=== PATIENT | female | born 1985 | race Caucasian/White ===

== ENCOUNTER 2017-09-08 12:39 | Inpatient (IN) | payer OTHER ==
[2017-09-08] MEDS ORDERED: OLANZapine 10 MG/2 ML VIAL IM ONE (13:24)
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
[2017-09-08 13:33] LABS: PLATELET COUNT 343 10^3/uL (150-400)
[2017-09-08] MEDS ORDERED: OLANZapine DISINTEGR 5 MG TAB PO ONE (13:41)
[2017-09-08] MEDS ORDERED: ALPRAZolam 0.25 MG TAB PO ONE (13:41)
[2017-09-09] MEDS ORDERED: OLANZapine DISINTEGR 10 MG TAB PO ONE (03:17)
[2017-09-09] MEDS ORDERED: LORazepam 1 MG TAB PO ONE ×2 (04:37→15:15)
[2017-09-09] MEDS ORDERED: LORazepam 1 MG TAB ONE (04:38)
[2017-09-09] MEDS ORDERED: ALPRAZolam 0.25 MG TAB PO ONE (05:14)
[2017-09-09] MEDS ORDERED: ACETAMINOPHEN 325 MG TAB PO PRN (14:50)
[2017-09-09] MEDS ORDERED: MAGNESIUM HYDROXIDE 30 ML UDCUP PO PRN (14:50)
[2017-09-09] MEDS ORDERED: MAG HYDROX/AL HYDROX/SIMETH 30 ML UDCUP PO PRN (14:50)
[2017-09-09] MEDS ORDERED: NICOTINE POLACRILEX 2 MG GUM B PRN (14:50)
[2017-09-09] MEDS ORDERED: LORazepam 2 MG/ML INJ IM PRN (14:52)
[2017-09-09] MEDS ORDERED: OLANZapine 10 MG/2 ML VIAL IM PRN (14:52)
[2017-09-09] MEDS ORDERED: OLANZapine DISINTEGR 10 MG TAB PO PRN (14:52)
[2017-09-09] MEDS ORDERED: OLANZapine DISINTEGR 5 MG TAB PO ONE (15:15)
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
[2017-09-09] MEDS: LORazepam 1 MG TAB PO PRN (20:26)
[2017-09-09] MEDS ORDERED: QUEtiapine FUMARATE 100 MG TAB PO ONE (23:45)
[2017-09-10] MEDS: LORazepam 1 MG TAB PO PRN (10:45)
[2017-09-10] MEDS ORDERED: LORazepam 1 MG TAB PO PRN (11:15)
[2017-09-10] MEDS ORDERED: HALOPERIDOL LACT 5 MG/ML INJ IM PRN (11:15)
[2017-09-10] MEDS ORDERED: HALOPERIDOL 10 MG TAB PO PRN (11:15)
[2017-09-10] MEDS ORDERED: LORazepam 2 MG/ML INJ IM PRN (11:15)
[2017-09-10] MEDS ORDERED: OLANZapine 10 MG/2 ML VIAL IM PRN (11:16)
--- NOTE | 2017-09-10 11:21 | SOAPPROG ---
SOAP Progress Note Assessment/Plan: Assessment: Schizoaffective Disorder bipolar type History of sagittal sinus thrombosis prior to 2013, per records Patient is agitated and disrupted on unit, yelling non-sensical, paranoid, and hypersexual statements. Patient has no insight and numerous prior psychiatric hospitalizations. Plan: Short Term Certification for grave disability Offer Penryn 300mg BID, taken previously EMED DAY #2 Schedule Olanzapine 10mg SL/IM BID PRN Haldol 5mg PO/IM severe agitation PRN Ativan 2mg PO/IM severe anxiety Monitor psychotic symptoms, irritability, disorganization Monitor PO intake due to severe disorganized thinking 09/10/17 11:23 Subjective: CC: "I want Xanax and Adderall" Patient is non-cooperative with interview. Screams non-sensical statments about being stalked by people from [place], aunt Jazzmine, having clitoral surgery, castrations, 'being naughty,' and not wanting treatment. Unable to explain recent events or reasons for hospitalizations. Reports not wanting mood stabilizer or antipsychotic medication. Objective: Vital Signs Temp Pulse Resp BP Pulse Ox 36.1 C 86 18 109/66 96 09/09/17 14:50 09/09/17 14:50 09/09/17 13:56 09/09/17 14:50 09/09/17 14:50 Alert WF, screaming non-sensical statements. Demanding Xanax and Adderall. Word salad with loose associations. Unable to assess if having SI or HI. Makes grandiose statements about having $4million and hypersexual comments. Paranoid about being stalked. No insight. Impaired judgment. Staff report patient received Zydis 10mg and Ativan 2mg yesterday afternoon, 2mg Ativan last night, slept 7 hours, isolative, disorganized, irritable, and yelling on unit. Patient got 10mg Zydis this AM for severe agitation. BHCG negative. HgbA1c, LFTs, Lipids, TSH WNL. - Time Spent With Patient Time Spent With Patient: 10 minutes - Pending Discharge Pending Discharge Within 24 Hours: No Pending Discharge Within 48 Hours: No ICD10 Worksheet Patient Problems: Problems Problem Status Onset Schizoaffective disorder Active
[2017-09-10] MEDS ORDERED: LITHIUM CARBONATE 300 MG CAP PO SCH (11:30)
[2017-09-10] MEDS ORDERED: HALOPERIDOL 5 MG TAB PO PRN (11:35)
[2017-09-10] MEDS: LITHIUM CARBONATE 300 MG/5 ML UDSYR PO SCH ×2 (12:09→19:12)
[2017-09-10 16:57] VITALS: BP 121/70; PULSE 109; RESP 16; TEMP 97.4; O2SAT 100
--- NOTE | 2017-09-10 18:23 | BDS ---
[f rep st] BEHAVIORAL HEALTH DISCHARGE SUMMARY BEHAVIORAL DISCHARGE SUMMARY. IDENTIFICATION: This is a 32-year-old single white female who lives with her father, Librado Franco, phone number [phone]. The patient has a history of chronic mental illness and multiple psychiatric hospitalizations. She is unemployed, has never been and has no children. Date of discharge and transfer to [facility] is 09/10/2017. REASON FOR ADMISSION: Please see initial psychiatric evaluation from yesterday September 09, 2017. The patient was causing a disturbance at her home with her father. Her father called the police. The patient was taken to the emergency room by police on an M1 hold. The patient was grossly disorganized, making bizarre and delusional hypersexual comments and was nonsensical and unable to care for herself. She was extremely agitated and screaming at people. HOSPITAL COURSE: The patient was admitted to the inpatient unit in the afternoon of September 09, 2017 she was extremely agitated, screaming, yelling, nonsensical and hypersexual statements. She required emergency medications to be started. She was given olanzapine 10 mg and Ativan 2 mg. She then later received a 2nd dose of Ativan 2 mg early in the morning September 10, 2017. She continued to be disorganized, paranoid and psychotic and delusional, and was placed on olanzapine 10 mg twice a day and lithium 300 mg twice a day. In the afternoon it was discovered that the patient had [employer] insurance. Dr. Roe Argueta the psychiatrist for [facility] requested the patient be transferred to [facility]. The morning of September 10, 2017 we filed a short-term certification for the patient to be receiving continued inpatient treatment. This will be transferred to [facility]. The patient has a history of hospitalizations at [facility] in 2008 and 2010. She also has a history of hospitalizations at [facility] and [facility] in the past. The patient has had recurrent noncompliance with outpatient treatment. The patient's father reports the patient has a history of multiple impulsive suicide attempts in the past and is concerned that psychiatric medication may actually cause her to become suicidal and does not want the patient to receive psychiatric medications. The patient's father also reports the patient has a history of blood clots in her brain. Our records indicate the patient had a normal brain MRI in 2014, but prior to that, there was a note that the patient had a prior history of a superior sagittal thrombosis. This apparently occurred while the patient was smoking cigarettes and taking oral contraceptive pills per the patient's father. The patient denied any chronic medical problems, did not appear to be medically unstable on the unit or medically unstable for transport. The patient was medically cleared by the emergency room physician, Dr. Villalobos on September 08, 2017 for further treatment. Prior to transport the patient and her father were notified of the transport. I was unable to reach either Dr. Byrd or the on-call psychiatrist, Dr. Larose at [facility]. I was able to speak to Dr. Atif Spears the psychiatrist in the psychiatric emergency room at [facility] to review the patient's history and recommend that the patient be on suicide precautions and inappropriate sexual behavior precautions. We will ask the staff on the inpatient unit here to give the patient's evening olanzapine 10 mg and Helper 300 mg prior to transport. CONSULTS: There were no consults. PROCEDURES: No procedures. LABS PENDING: None. LAB RESULTS: Blood cell count 10.7, hemoglobin 14.8, platelet count 343. Sodium 144, potassium 3.8, creatinine 0.6, glucose 78, calcium 9.2, hemoglobin A1c 5.0. AST 27, ALT 24. Triglycerides 123, LDL 82, HDL 56. TSH 1.6. Serum was negative. Urine drug screen negative. Alcohol level negative. DISCHARGE DIAGNOSES: 1. Schizoaffective disorder bipolar type. 2. History of superior sagittal thrombosis prior to 2013 per records. DISCHARGE MEDICATIONS: 1. Olanzapine 10 mg by mouth twice a day. 2. Helper 300 mg by mouth twice a day. 3. Ativan 2 mg p.o. q.4 hours p.r.n. severe anxiety or agitation. DISPOSITION: The patient is being transferred to the inpatient psychiatric unit at [facility] for further inpatient treatment. LEGAL STATUS: The patient was admitted on an M1 hold for emergency mental health evaluation. On the morning of September 10, 2017 she was placed on a short- term certification for grave disability due to her grossly disorganized thinking and behavior and hypersexual and paranoid statements. This will be transferred to [facility]. /[id number]/MODL MTDD
--- NOTE | 2017-09-10 18:58 | BCON ---
[f rep st] BEHAVIORAL HEALTH CONSULTATION INTERNAL MEDICINE CONSULTATION DATE OF CONSULTATION: 09/10/2017 REFERRING PHYSICIAN: Loy Morrison MD REASON FOR REFERRAL: Medical clearance for inpatient behavioral health stay. HISTORY OF PRESENT ILLNESS: This patient came to the emergency department 2 days ago, brought in by police on a mental health hold for abnormal behavior. She had been confused and exhibiting paranoid delusions earlier in the day. She was noted to be paranoid and psychotic in the emergency department, and was admitted for further psychiatric care. On the inpatient behavioral health unit, she has been agitated and screaming and received emergency medications and is presently calm. She, however, complains of feeling very angry and is not very cooperative with exam. PAST MEDICAL HISTORY: 1. Intracerebral venous thrombosis. 2. Schizoaffective disorder. PAST SURGICAL HISTORY: She has had tonsillectomy and a procedure for her intracerebral venous thrombosis, the etiology of which is thought to have been control pills plus smoking. MEDICATIONS: Prior to admission, unclear whether she was taking medications or not. According to the medical record, she had been prescribed olanzapine 10 mg p.o. twice daily, lithium 300 mg p.o. twice daily, and lorazepam 2 mg q.4 hours p.r.n. SOCIAL HISTORY: She lives in an attached apartment at her father's house, and she has a roommate. She has a history of smoking but does not smoke anymore. FAMILY HISTORY: Noncontributory. REVIEW OF SYSTEMS: Limited due to reduced cooperation. She wants to focus on her emotional state and reports that she is angry. She denies pain or dyspnea and otherwise to the extent that it could be elicited, a 10-point review of systems was negative. Per chart review, she has had no significant weight change in recent years. PHYSICAL EXAM: VITAL SIGNS: Blood pressure is 121/70; heart rate is 109, previously during her stay heart rate has ranged from 58-98; respiratory rate is 16; oxygen saturation is 100% on room air. Temperature is 36.3 degrees centigrade. Her weight is 54.4 kg for a body mass index of 21.9. GENERAL: This is a well-nourished, well-developed woman, appears her chronologic age with short hair and with a line drawn around her neck with a black ink marker. HEENT: Extraocular movements are intact. Mucous membranes are moist. NECK: Supple. HEART: Could not be examined. LUNGS: She has normal respiratory rate with no accessory muscle use and no cough. ABDOMEN: Appears benign. EXTREMITIES: There appears to be no edema. NEUROLOGIC: Orientation was not checked. She is alert. Cranial nerves 2-12 are grossly intact. She has no focal weakness. Gait is within normal limits. LABORATORY STUDIES: CBC revealed an elevated white blood cell count at 10.71 with an elevation of absolute neutrophils at 7.22. Serum chemistry revealed normal renal function and electrolytes, normal liver functions. Hemoglobin A1c was 5.0. TSH was normal at 1.65. Beta hCG was negative for . Lipid panel was benign with a cholesterol of 162, an LDL of 82, and HDL of 56. Toxicology screen in the serum was negative for ethyl alcohol, and the urine was negative for any substances of abuse. ASSESSMENT/RECOMMENDATIONS: 1. Mental health issues, pending further evaluation and management per Psychiatry and the mental health team. 2. Leukocytosis. This is likely due to stress as she has an otherwise normal exam to the extent it could be completed and no signs or symptoms of infection. I see no medical contraindications to this patient's continued stay on the inpatient behavioral health unit or to any psychiatric medications or procedures. Thank you very much for including me in the care of this patient. Please do not hesitate to contact me or the hospitalist service should there be need for further medical evaluation. /[id number]/MODL MTDD
[2017-09-10] MEDS ORDERED: OLANZapine DISINTEGR 10 MG TAB PO SCH (21:00)
== END 2017-09-10 20:06 | DRG 885 ==
LOC: BBEH 09-09 14:35
PROVIDERS: ADMIT Psychiatry & Neurology Psychiatry
DX: F25.0 Schizoaffective disorder, bipolar type (principal); Z87.891 Personal history of nicotine dependence
CPT/HCPCS: 80305; G0480